=== PATIENT | female | born 1960 | race Caucasian/White ===

== ENCOUNTER 2016-10-09 09:19 | Observation (INO) | payer OTHER ==
[~2016-10-09] VITALS: Ht 162.6 cm; Wt 93.0 kg
[2016-10-09 09:57] LABS: HEMOGLOBIN 14.9 gm/dl (12.3-15.3); RED BLOOD COUNT 5.02 M/UL (4.00-5.10)
[2016-10-09 10:19] LABS: BUN/CREATININE RATIO 14 (0-10)
[2016-10-09] MEDS ORDERED: TENORMIN 50 MG50 MG PO (15:39)
[2016-10-09] MEDS ORDERED: BENTYL 20MG TAB20 MG PO (15:42)
[2016-10-09] MEDS ORDERED: TRAMADOL HCL50 MG PO (15:44)
[2016-10-09] MEDS ORDERED: SINGULAIR10 MG PO (15:45)
[2016-10-09] MEDS ORDERED: PROTONIX20 MG PO (15:46)
[2016-10-09] MEDS ORDERED: CARDIZEM 30MG T30 MG PO (15:47)
[2016-10-09] MEDS ORDERED: BENTYL 10MG CAP10 MG PO (16:51)
[2016-10-10 04:38] LABS: HEMOGLOBIN 13.7 gm/dl (12.3-15.3); RED BLOOD COUNT 4.68 M/UL (4.00-5.10); WHITE BLOOD COUNT 8.2 K/UL (4.5-11.0)
[2016-10-10 05:03] LABS: BUN/CREATININE RATIO 20 (0-10)
[2016-10-10] MEDS ORDERED: ASPIRIN CHEWABL81 MG PO (10:35)
== END 2016-10-10 10:51 | disposition home or self-care (01) ==
LOC: ER1 09:19 → MED SURG 4 12:11 → ZEROF 12:11 → MED SURG 4 13:12
PROVIDERS: Emergency Medicine; Physician Assistant; ADMIT Internal Medicine
DX: R07.89 Other chest pain (principal); I10 Essential (primary) hypertension; J45.909 Unspecified asthma, uncomplicated; Z86.69 Personal history of other diseases of the nervous system and sense organs; Z79.82 Long term (current) use of aspirin; Z79.899 Other long term (current) drug therapy; Z88.8 Allergy status to other drugs, medicaments and biological substances; Z90.49 Acquired absence of other specified parts of digestive tract
CPT/HCPCS: ECHO; 36415; 70450; 71010; 80048; 80053; 80061; 82550; 82553; 83735; 83874; 84484; 85025; 85027; 85379; 93005; 93306; 99285; G0378

== ENCOUNTER 2022-02-02 12:09 | Emergency (ER) | payer OTHER ==
[~2022-02-02 12:09] MED LIST: ASPIRIN CHEWABL81 MG PO; BENTYL 10MG CAP10 MG PO; BENTYL 20MG TAB20 MG PO; CARDIZEM 30MG T30 MG PO; PROTONIX20 MG PO; SINGULAIR10 MG PO; TENORMIN 50 MG50 MG PO; TRAMADOL HCL50 MG PO
[2022-02-02 16:17] LABS: RED BLOOD COUNT 4.83 M/UL (4.00-5.10); WHITE BLOOD COUNT 8.5 K/UL (4.5-11.0)
[2022-02-02 16:44] LABS: BUN/CREATININE RATIO 17 (0-10)
== END 2022-02-02 18:28 | disposition home or self-care (01) ==
LOC: ER1 12:09
PROVIDERS: Physician Assistant
DX: U07.1 COVID-19 (principal); I10 Essential (primary) hypertension; K21.9 Gastro-esophageal reflux disease without esophagitis; Z88.8 Allergy status to other drugs, medicaments and biological substances; W07.XXXA Fall from chair, initial encounter
CPT/HCPCS: 70450; 72125; 80053; 85025; 96374; 96375; 99284; J0360; J1885; J2270; J2550; U0002